=== PATIENT | female | born 1980 | race Two or more races ===

== ENCOUNTER 2017-08-01 23:04 | Emergency (ER) | payer SELFPAY ==
[2017-08-01 23:11] VITALS: BP 140/94
--- NOTE | 2017-08-02 00:03 | RADIOLOGY REPORT (SQ) ---
EXAM DESCRIPTION: XR FOOT 3 OR MORE VIEWS COMPLETED DATE/TME: 08/01/2017 23:14 CLINICAL HISTORY: 37 years, Female, pain great toe COMPARISON: None. FINDINGS: 3 views of the right foot. Plantar calcaneal spur. Normal osseous mineralization. No acute fracture or dislocation. IMPRESSION: No acute fracture or dislocation. 2011 [employer]- All Rights Reserved
[2017-08-02] MEDS ORDERED: HYDROCODONE/ACETAMINOPHEN 5-325 MG (6 TAB/ER DISP) PO PRN (00:16)
[2017-08-02] MEDS ORDERED: INDOMETHACIN 50 MG CAPSULE PO ONE (00:16)
--- NOTE | 2017-08-02 00:22 | ER Document Report ---
ED Extremity Problem, Lower - General Chief Complaint: Foot Pain Stated Complaint: TOE SWELLING Time Seen by Provider: 08/02/17 00:06 Mode of Arrival: Ambulatory Information source: Patient TRAVEL OUTSIDE OF THE [place] IN LAST 30 DAYS: No - HPI Patient complains to provider of: Pain Location: Foot Notes: Patient is here with complaints of right foot pain. She states that while at work she started to have some mild pain at the first MTP joint of her right foot and as the day progressed the pain got worse. She denies any trauma, fall , injury. She denies fever. She denies nausea, vomiting, diarrhea. She denies numbness, tingling, weakness. No chest pain or shortness of breath. She denies any history of gout. No other complaints at this time. Pain is worse with touching the area as well as walking. Nothing seems to make it better. Past Medical History - Social History Smoking Status: Unknown if Ever Smoked Family History: Reviewed & Not Pertinent Review of Systems - Review of Systems -: Yes All other systems reviewed and negative Physical Exam - Vital signs Vitals: Temp Pulse Resp BP Pulse Ox 98.2 F 90 18 140/94 H 96 08/01/17 23:10 08/01/17 23:10 08/01/17 23:10 08/01/17 23:10 08/01/17 23:10 - Notes Notes: GENERAL: alert, cooperative, nontoxic, no distress. HEAD: normocephalic, atraumatic EYES: conjunctiva pink without discharge, no external redness or swelling. EARS: no external swelling, no external redness NOSE: atraumatic, no external swelling MOUTH/THROAT: mucous membranes moist and pink NECK: soft, supple, full range of motion, no meningismus. CHEST: no distress, lungs clear and equal throughout. No wheezing, rales, rhonchi. CARDIAC: regular rate and rhythm, no murmur, normal capillary refill, normal pulses. BACK: full range of motion, no CVA tenderness. EXTREMITIES: Full range of motion. Moderate tenderness to palpation of the right first MTP joint. Mild swelling. No obvious redness. Normal pulse and sensation distally. Patient has tenderness with even light touch to this area. Normal cap refill and sensation. NEURO: alert and oriented 3, no focal deficits, full range of motion of all extremities. PYSCH: appropriate mood, affect. Patient is cooperative. SKIN: pink, warm, dry, no rash. Course - Re-evaluation Re-evalutation: 08/02/17 00:19 Patient is nontoxic-appearing with stable vitals. She is here with complaints of right foot pain at the first MTP joint. She denies any injury or fall. Patient is noted to have moderate tenderness at this joint with any sort of movement of the toe and even light touch of this area. There is no obvious redness. There is no fever. No obvious signs of infection and no reason for infection. X-ray of the foot shows no acute abnormality per the radiologist. Patient denies a history of gout, but the site of pain with lack of injury makes this a strong possibility. Another consideration would be tendinitis. At this point I do not believe that the patient has an infection of this joint. Patient will be given Indocin and [place] with instructions to rest, ice, elevate. She was given a postop shoe. She will be instructed to follow-up if this is not improving in the next 3-5 days, but the follow-up sooner for worsening pain, fever, redness, redness or swelling of the foot or leg, or for any further concerns. The patient is noted to have elevated blood pressure during today's emergency department visit. The patient was informed of this finding. The patient was instructed that this may be related to pre-hypertension and requires further evaluation with a primary care provider. The patient has no hypertensive symptoms at this time. The patient's emergency department workup and current diagnosis were explained to the patient and or family. Follow-up instructions were provided. Medications if prescribed were discussed. Instructions for when to return to the emergency department including specific worrisome symptoms were discussed with the patient and/or family. - Vital Signs Vital signs: Temp Pulse Resp BP Pulse Ox 98.2 F 90 18 140/94 H 96 08/01/17 23:10 08/01/17 23:10 08/01/17 23:10 08/01/17 23:10 08/01/17 23:10 - Diagnostic Test Radiology reviewed: Image reviewed, Reports reviewed - Negative right foot Procedures - Immobilization Right foot Pre-Proc Neuro Vasc Exam: Normal Immobilizer type: Post-op shoe Performed by: PCT Post-Proc Neuro Vasc Exam: Normal Alignment checked and good: Yes Discharge - Discharge Clinical Impression: Arthropathy Condition: Stable Disposition: HOME, SELF-CARE Instructions: Gout ([facility]), Gout Diet ([facility]), Family Physicians / Practices Additional Instructions: Take medication as prescribed. Wear postop shoe as needed for comfort. Rest, ice, elevate. Follow-up if not better in the next 3-5 days, follow-up sooner for worsening pain, fever, redness or swelling of the foot or leg, or for any further concerns. Your blood pressure was elevated during today's visit. Have this rechecked with your doctor. The medication you were prescribed today may cause drowsiness. Do not drive or operate heavy machinery while taking this medication. Prescriptions: Indomethacin [Indocin 50 mg Capsule] 50 mg PO TID PRN #30 capsule PRN Reason: Forms: Elevated Blood Pressure, Smoking Cessation Education Referrals: [facility] [Provider Group] - Follow up as needed PIEDAD BRUNO MD [ACTIVE STAFF] - Follow up as needed
== END 2017-08-02 00:52 | disposition home or self-care (01) ==
LOC: ER 23:04
DX: M12.9 Arthropathy, unspecified (principal); M25.571 Pain in right ankle and joints of right foot; R03.0 Elevated blood-pressure reading, without diagnosis of hypertension
CPT/HCPCS: 99283; 73630; J3490